=== PATIENT | male | born 1945 | race Caucasian/White ===

== ENCOUNTER → 2016-05-09 | Outpatient (CLI) | payer OTHER | END | disposition home or self-care (01) | LOC: LAB.O 14:33 | PROVIDERS: ATTEND Internal Medicine | DX: Z00.01 Encounter for general adult medical examination with abnormal findings (principal); G20 Parkinson's disease; F41.9 Anxiety disorder, unspecified; G47.33 Obstructive sleep apnea (adult) (pediatric); B35.1 Tinea unguium; C43.39 Malignant melanoma of other parts of face; M19.90 Unspecified osteoarthritis, unspecified site; E78.2 Mixed hyperlipidemia; E11.9 Type 2 diabetes mellitus without complications; N40.0 Benign prostatic hyperplasia without lower urinary tract symptoms ==

== ENCOUNTER → 2016-05-16 | Outpatient (CLI) | payer OTHER | END | disposition home or self-care (01) | LOC: LAB.O 09:55 | PROVIDERS: ATTEND Internal Medicine | DX: N40.0 Benign prostatic hyperplasia without lower urinary tract symptoms (principal); F41.9 Anxiety disorder, unspecified; G20 Parkinson's disease; B35.1 Tinea unguium; G47.33 Obstructive sleep apnea (adult) (pediatric) ==

== ENCOUNTER → 2016-05-20 | Outpatient (CLI) | payer OTHER | END | disposition home or self-care (01) | LOC: LAB.O 10:53 | PROVIDERS: ATTEND Internal Medicine | DX: Z00.01 Encounter for general adult medical examination with abnormal findings (principal); G20 Parkinson's disease; F41.9 Anxiety disorder, unspecified; B35.1 Tinea unguium; N40.0 Benign prostatic hyperplasia without lower urinary tract symptoms; G47.33 Obstructive sleep apnea (adult) (pediatric) ==

== ENCOUNTER → 2016-07-07 | Outpatient (CLI) | payer OTHER ==
--- NOTE | 2016-07-07 12:53 | RAD ---
EXAM DESCRIPTION: Chest,2 Views CLINICAL HISTORY: 70 years Male, [place] IMPRESSION: 2 views of the chest reveal what is likely left ventricular hypertrophy with a tortuous descending aorta. The right lung is clear. The left lung is clear. Mild degenerative change of thoracic spine. Electronically signed by: Praveen Lopez MD 07/07/2016 12:53 PM CDT
== END | disposition home or self-care (01) ==
LOC: LAB.O 09:17
PROVIDERS: ATTEND Surgery Plastic and Reconstructive Surgery
DX: Z01.810 Encounter for preprocedural cardiovascular examination (principal); Z01.812 Encounter for preprocedural laboratory examination; Z01.811 Encounter for preprocedural respiratory examination

== ENCOUNTER → 2016-07-08 | Outpatient (CLI) | payer OTHER | LOC: RESP 09:43 | PROVIDERS: ATTEND Surgery Plastic and Reconstructive Surgery | DX: C43.4 Malignant melanoma of scalp and neck (principal); Z01.810 Encounter for preprocedural cardiovascular examination; Z01.811 Encounter for preprocedural respiratory examination ==

== ENCOUNTER → 2017-06-11 | Outpatient (CLI) | payer OTHER | LOC: LAB.O 14:25 | PROVIDERS: ATTEND Internal Medicine | DX: Z00.01 Encounter for general adult medical examination with abnormal findings (principal); G20 Parkinson's disease; E11.9 Type 2 diabetes mellitus without complications; N40.0 Benign prostatic hyperplasia without lower urinary tract symptoms; E03.9 Hypothyroidism, unspecified; D64.9 Anemia, unspecified; E88.3 Tumor lysis syndrome; Z85.9 Personal history of malignant neoplasm, unspecified ==

== ENCOUNTER → 2017-06-17 | Outpatient (CLI) | payer OTHER | LOC: LAB.O 16:09 | PROVIDERS: ATTEND Internal Medicine | DX: E78.2 Mixed hyperlipidemia (principal); E53.8 Deficiency of other specified B group vitamins; E11.9 Type 2 diabetes mellitus without complications; E55.9 Vitamin D deficiency, unspecified; D64.9 Anemia, unspecified; N40.0 Benign prostatic hyperplasia without lower urinary tract symptoms ==

== ENCOUNTER → 2018-01-12 | Outpatient (CLI) | payer OTHER | LOC: LAB.O 11:23 | PROVIDERS: ATTEND Internal Medicine | DX: G20 Parkinson's disease (principal); E11.9 Type 2 diabetes mellitus without complications; E53.8 Deficiency of other specified B group vitamins; E55.9 Vitamin D deficiency, unspecified; E03.9 Hypothyroidism, unspecified; N39.0 Urinary tract infection, site not specified ==